=== PATIENT | male | born 1980 | race Two or more races ===

== ENCOUNTER 2016-10-10 13:25 | Emergency (ER) | payer SELFPAY ==
[~2016-10-10] VITALS: Ht 172.7 cm; Wt 76.0 kg
[2016-10-10 13:31] VITALS: BP 148/87
== END 2016-10-10 16:46 | disposition home or self-care (01) ==
LOC: ER 15:22
DX: S63.697A Other sprain of left little finger, initial encounter (principal); J45.909 Unspecified asthma, uncomplicated; X58.XXXA Exposure to other specified factors, initial encounter; Y93.89 Activity, other specified; Y92.89 Other specified places as the place of occurrence of the external cause; Y99.8 Other external cause status
CPT/HCPCS: 29125; 73130; 99284